=== PATIENT | male | born 1965 | race Caucasian/White ===

== ENCOUNTER → 2017-01-31 12:01 | Outpatient (CLI) | payer MEDICAID ==
[2013-07-02 08:39] VITALS: BMI 29.7
[~2017-01-31 12:01] MED LIST: IMDUR30 MG PO; NORCO 10/325 TA1 TA1 PO; PRINZIDE 10/12.1 TAB PO; TRIGLIDE160 MG PO; VALIUM5 MG PO
== END | disposition home or self-care (01) ==
LOC: D.CT 12:01
DX: R10.33 Periumbilical pain (principal)

== ENCOUNTER 2017-03-13 05:58 | Day surgery (SDC) | payer MEDICAID ==
[2017-03-10 12:10] LABS: HEMATOCRIT 48.5 % (42.0-54.0); MCH 34.8 pg (26.0-34.0); MCHC 35.1 g/dL (31.0-37.0); MCV 99.4 fL (80.0-100.0); RBC 4.88 10x6/uL (4.20-6.10); RDW 12.2 % (11.5-14.5); WBC 9.6 10x3/uL (4.8-10.8)
[~2017-03-13] VITALS: Ht 185.4 cm; Wt 101.6 kg
[~2017-03-13 05:58] MED LIST changes: +NORVASC5 MG PO; +PRINIVIL20 MG PO; +PROTONIX40 MG PO; +VALIUM10 MG PO
[2017-03-13 10:09] VITALS: BP 170/107; Ht 185.4 cm; Wt 101.6 kg
[2017-03-13] MEDS ORDERED: HYDROCODON-ACE1 EAC7 PO (13:20)
--- NOTE | 2017-03-14 08:03 | OP ---
PATIENT NAME: YOGI ELIZABETH MEDICAL RECORD: [id number] :67 [facility]: SURGEON: CARLO HAAS MD DATE OF OPERATION: 03/13/2017 SURGEON: Carlo Haas MD. PREOPERATIVE DIAGNOSIS: Ventral hernia without obstruction. POSTOPERATIVE DIAGNOSIS: Ventral hernia without obstruction. PROCEDURE PERFORMED: Laparoscopic ventral hernia repair with Ventralight ST mesh. ANESTHESIA: General. COMPLICATIONS: None. SPECIMENS: None. Case was clean. OPERATIVE COURSE: After consent was obtained, the patient was taken to the operating room and placed in the supine position on the operating table. Next, general anesthesia was given via endotracheal intubation after a timeout was taken to confirm the correct patient and procedure. The abdomen was prepped and draped in typical sterile fashion. Ioban dressing was placed. Local anesthetic was injected in the left upper quadrant at Zavaleta's point. Using a 5-mm bladeless optical trocar, the abdomen was entered under direct laparoscopic vision. Adequate pneumoperitoneum was achieved. The abdominal cavity was inspected. No evidence of bowel injury. No evidence of bleeding. At this time, all additional trocars were placed. An 11-mm trocar in the left lower quadrant and 5-mm trocar in the right lateral quadrant. The hernia was identified just to the superior portion of the umbilicus. The preperitoneal fat was dissected off the anterior abdominal wall using electrocautery. The hernia sac and hernia contents were reduced and excised with electrocautery. The space was cleared, a 6-inch Ventralight ST mesh was placed in the abdominal wall using the Echo positioning system, it was secured against the anterior abdominal wall and it was affixed using the Optifix tacking device in a double crown fashion. Thereafter, the Echo positioning system was removed. The abdominal cavity was inspected. No evidence of bowel injury. No evidence of bleeding. At this time, all remaining instruments were removed. The abdomen was desufflated. Trocars were removed. Skin was closed with 4-0 Monocryl, Mastisol and Steri-Strips. At the end of the case, all needle and instrument counts were correct. No complications occurred. The patient was extubated and transferred to the PACU in stable condition. TRANSINT:[id number] Voice Confirmation ID: [id number] DOCUMENT ID: [id number] OPERATIVE REPORT [id number] YOGI ELIZABETH CARLO HAAS MD at 0803 CC: [id number] DICTATION DATE: 03/13/17 1324 DOOR HANGER: 03/13/[address] [facility] [place] 03/13/17 [id number] [place] [address]
== END 2017-03-13 16:00 | disposition home or self-care (01) ==
LOC: D.OPS 05:58 → D.PAN 10:15 → D.OPS 12:00
PROVIDERS: Anesthesiology
DX: K43.9 Ventral hernia without obstruction or gangrene (principal); F17.200 Nicotine dependence, unspecified, uncomplicated; I10 Essential (primary) hypertension; K21.9 Gastro-esophageal reflux disease without esophagitis; Z01.812 Encounter for preprocedural laboratory examination

== ENCOUNTER → 2017-03-27 15:44 | Outpatient (CLI) | payer MEDICAID ==
[2017-03-13 10:09] VITALS: BMI 29.6
[~2017-03-27 15:44] MED LIST changes: +HYDROCODON-ACE1 EAC7 PO
== END | disposition home or self-care (01) ==
LOC: D.US 15:44
DX: R60.0 Localized edema (principal)

== ENCOUNTER 2017-11-12 06:03 | Emergency (ER) | payer BC ==
[2017-03-13 10:09] VITALS: BMI 29.6
[2017-11-12 06:57] LABS: BASOPHILS 0.4 % (0-2); EOSINOPHILS 0.1 % (0-7); HEMATOCRIT 54.3 % (42.0-54.0); IMMATURE GRANULOCYTES 0.2 % (0-5); LYMPHOCYTES 11.2 % (15-50); MCH 37.6 pg (26.0-34.0); MCV 107.5 fL (80.0-100.0); MEAN PLATELET VOLUME 10.1 fL (7.4-10.4); MONOCYTES 8.6 % (2-11); NEUTROPHILS 79.5 % (40-80); PLATELET COUNT 146 10x3/uL (130-400); RBC 5.05 10x6/uL (4.20-6.10); RDW 13.8 % (11.5-14.5)
[2017-11-12 07:00] LABS: ALKALINE PHOSPHATASE 84 U/L (46-116); ALT (SGPT) 111 U/L (10-68); BILIRUBIN - TOTAL 1.77 mg/dL (0.2-1.3); CALC OSMOLALITY 273 mosm/kg (275-300); CALCIUM 9.3 mg/dL (8.5-10.1); CARBON DIOXIDE 24.2 mmol/L (21.0-32.0); CHLORIDE - SERUM 98 mmol/L (98-107); GLUCOSE 130 mg/dL (74-106); PROTEIN - SERUM 8.3 g/dL (6.4-8.2); SODIUM 136 mmol/L (136-145); UREA NITROGEN 13 mg/dL (7-18); eGFR NON AFRICAN AMERICAN 84 mL/min (90-120)
[2017-11-12 07:33] LABS: APPEARANCE CLEAR (CLEAR); BILIRUBIN 1+ (NEGATIVE); COLOR DK YELLOW (YELLOW); GLUCOSE NEGATIVE (NEGATIVE); KETONE LARGE mg/dL (NEGATIVE); NITRITE NEGATIVE (NEGATIVE); PROTEIN 1+ mg/dL (NEGATIVE); SPECIFIC GRAVITY 1.015 (1.005-1.020); UROBILINOGEN NORMAL (NORMAL); WHITE CELLS - URINE NSEEN /hpf (0-5)
[2017-11-12 07:35] LABS: UDS - AMPHET POSITIVE QUAL (NEGATIVE); UDS - BARB NEGATIVE QUAL (NEGATIVE); UDS - BENZO POSITIVE QUAL (NEGATIVE); UDS - COCAINE NEGATIVE QUAL (NEGATIVE); UDS - OPIATE NEGATIVE QUAL (NEGATIVE); UDS - PCP NEGATIVE QUAL (NEGATIVE); UDS - THC NEGATIVE QUAL (NEGATIVE)
[2017-11-12 08:12] LABS: CREATINE KINASE 385 UL (21-232); LIPASE 122 U/L (73-393); PRO BNP 201 pg/mL (0-125)
[2017-11-12 08:13] LABS: TROPONIN-I < 0.017 ng/mL (0.000-0.060)
== END 2017-11-12 09:40 | disposition home or self-care (01) ==
LOC: D.ER 06:03
PROVIDERS: Family Medicine
DX: I10 Essential (primary) hypertension (principal); I25.10 Atherosclerotic heart disease of native coronary artery without angina pectoris

== ENCOUNTER → 2018-03-30 13:18 | Outpatient (CLI) | payer BC ==
[2017-03-13 10:09] VITALS: BMI 29.6
[2018-04-02 15:20] LABS: ANTIGLIADIN IGA 17 units (0-19); ANTIGLIADIN IGG 5 units (0-19)
[2018-04-03 06:14] LABS: ENDOMYSIAL ANTIBODY IGA Negative (Negative)
== END | disposition home or self-care (01) ==
LOC: D.LAB 08:15
PROVIDERS: Internal Medicine Gastroenterology
DX: R19.7 Diarrhea, unspecified (principal); D72.829 Elevated white blood cell count, unspecified